=== PATIENT | female | born 2000 | race Caucasian/White ===

== ENCOUNTER 2020-01-04 12:28 | Outpatient (CLI) | payer SELFPAY | END 2020-01-04 12:29 | disposition home or self-care (01) | PROVIDERS: Family Provider Family Medicine; PCP Nurse Practitioner; Visit Provider Nurse Practitioner | DX: F41.9 Anxiety disorder, unspecified (principal) | CPT/HCPCS: 80053; 84443; 85025 ==

== ENCOUNTER → 2021-09-10 11:16 | Outpatient (BNVA) | payer SELFPAY | PROVIDERS: Family Provider Family Medicine; Visit Provider Family Medicine | DX: R07.9 Chest pain, unspecified (principal) | CPT/HCPCS: 71046 ==

== ENCOUNTER → 2021-10-31 10:59 | Outpatient (BNVA) | payer MEDICAID, SELFPAY | PROVIDERS: Family Provider Family Medicine; Visit Provider Family Medicine | DX: L04.2 Acute lymphadenitis of upper limb (principal); A28.1 Cat-scratch disease | CPT/HCPCS: 86611 ==

== ENCOUNTER 2021-11-07 09:33 | Emergency (ER) | payer MEDICAID, SELFPAY ==
[2021-11-07 09:37] VITALS: BP 162/92; PULSE 89; RESP 16; TEMP 36.8; O2SAT 99; BMI 44.9
--- NOTE | 2021-11-07 10:01 | USCV_ITS ---
Ioanaoard, Jennifer Age: 21 Gender: F : 2000 Exam Date: 11/07/2021 10:21 Ordering Phys: Bert Hernandez Technologist: Exam Location: [facility] [place] Indication: LT ARM PAIN AND SWELLING HISTORY: Upper extremity pain. PROCEDURES: Venous duplex imaging was performed in only the left upper extremity. The following venous structures were evaluated: internal jugular vein, subclavian vein, axillary vein, and brachial veins. In addition, the basilic vein, cephalic vein, radial vein, and ulnar vein. FINDINGS: The veins of the left upper extremity are readily compressible with normal venous flow dynamics including spontaneous flow, respiratory phasic variation and augmentation. CONCLUSIONS No left upper extremity DVT. Dr. Soila Gardiner DO (Electronically Signed) Final Date: 07 November 2021 11:37 S
--- NOTE | 2021-11-07 10:02 | W.ED.EXTPRO ---
HPI - Extremity Problem General: Chief complaint: Extremity Injury, Upper Stated complaint: L ARM PAIN X 2 WKS - NO KNOWN INJURY Time Seen by Provider: 11/07/21 09:37 History of Present Illness: HPI Narrative: Patient is a 21-year-old female comes to the ED with left arm pain. Patient denies any injury or trauma to cause pain and says it has been going on for the past 2 weeks. She describes it as an aching type pain that starts in her forearm and goes up to her tricep. Denies any recent exercise or strength training to cause muscle pain. 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 She has full range of motion her left arm. Patient also states she has little aching pain on her right flank. Denies any fever, chills, abdominal pain, nausea/vomiting, diarrhea, constipation, dysuria or hematuria. Associated symptoms: Deny chest pain, fever(s) or rash Review of Systems Const: Denies: fever(s), chills or fatigue Eyes: Denies: change in vision or eye discomfort ENMT: Denies: throat pain, odynophagia, nasal discharge or nasal congestion Card: Denies: chest pain, palpitations, edema, swelling of feet/ankles, dyspnea on exertion or orthopnea Resp: Denies: dyspnea, productive cough or non-productive cough GI: Denies: abdominal pain, nausea, vomiting, diarrhea, constipation or hematochezia : Reports: flank pain (right); Denies: dysuria or hematuria Musc: Reports: extremity pain (left arm aching pain) and muscle cramps (left arm); Denies: neck pain, back pain or extremity swelling Skin/Breast: Denies: rash or new lesions Neuro: Denies: headache(s), numbness in extremities or weakness in extremities PFS ED PFSH: Medical History Anxiety Family History Grandfather Bleeding disorder maternal Congestive heart failure maternal Heart disease maternal Grandmother Diabetes maternal Family/Other Hyperlipidemia maternal side Hypertension maternal side Denies family history of Colon cancer Ovarian cancer Clotting disorder Breast cancer Anesthesia complication Uterine cancer Thyroid condition Stroke Social History Smoking and tobacco status: never smoked Alcohol intake: never Female Reproductive History: Date of last menstrual period: 01/04/20 Para: 0 Physical Exam Narrative: EXAM NARRATIVE: Patient is a healthy 21-year-old female that appears in no acute distress or pain. She sitting comfortably on exam chair when I entered the room. Const: COMMON NORMALS: no acute distress, patient oriented x3 and alert GENERAL APPEARANCE: cooperative and comfortable NUTRITIONAL APPEARANCE: obese HENMT: COMMON NORMALS: normocephalic HEAD & SCALP: normocephalic MOUTH: Normal oral and palatal mucosa present THROAT: posterior oropharynx normal and uvula midline Eye: COMMON NORMALS: Equal, round and reactive pupils present PUPIL: Yes Equal, round and reactive pupils present Neck/C-Spine: COMMON NORMALS: supple GENERAL: Yes normal visual inspection Resp: COMMON NORMALS: normal respiratory effort, No retractions, No use of accessory muscles and clear to auscultation bilaterally AUSCULTATION: clear to auscultation bilaterally Cardio: COMMON NORMALS: regular rate, regular rhythm, S1 normal heart sound present, S2 normal heart sound present, No gallops present (Cardio), No clicks present (Cardio), No murmurs present (Cardio) and Peripheral pulses 2+ throughout RATE: regular rate RHYTHM: regular rhythm HEART SOUNDS: S1 normal heart sound present and S2 normal heart sound present PERIPHERAL PULSES: Peripheral pulses 2+ throughout GI: COMMON NORMALS: Normal to inspection, nondistended, normoactive bowel sounds present, Soft to palpation, non-tender and no masses PALPATION: Yes Soft to palpation : COMMON NORMALS: Yes no CVA tenderness BLADDER/KIDNEY EXAM: Yes no CVA tenderness Back/Pelvis: COMMON NORMALS: no CVA tenderness Extremity: COMMON NORMALS: normal to inspection, full ROM, capillary refill normal and no pedal edema Neuro: COMMON NORMALS: patient oriented x3 and moves all extremities SENSORIUM/ORIENTATION: Yes alert Skin: GENERAL SKIN EXAM: dry skin Course Vital Signs: Vital signs: Vital Signs Temperature 98.2 F 11/07/21 09:37 Pulse Rate 89 11/07/21 10:05 Respiratory Rate 16 11/07/21 10:05 Blood Pressure 162/92 11/07/21 10:05 Pulse Oximetry 99 11/07/21 10:05 MDM - Extremity (Nontraumatic) MDM Narrative: Medical decision making narrative: Patient is a 21-year-old female who comes to the ED with multiple complaints. Her main complaint was nontraumatic left arm pain that she describes as a muscle achy type pain. She also states she is having a little bit of mild right flank pain. Vitals stable. Exam of patient is benign. She appears in no acute distress or pain and is sitting comfortably on exam chair when I enter the room. UA showed no acute findings. hCG negative. Ultrasound venous duplex of left upper extremity showed no DVT or blood clots seen. Patient diagnosed with musculoskeletal pain of left upper extremity and discharged home. She was told to follow-up with PCP in 7 to 10 days reevaluation. Return to ED precautions given. Patient understood and agreed with plan. Lab Data: Attestation: I reviewed the patient's lab results. Labs: Lab Results 11/07/21 11/07/21 10:15 10:15 HCG, Qual Negative (Negative) Urine Color Straw (Yellow) Urine Appearance Clear (CLEAR) Urine pH 8 H (5-7) Ur Specific Gravit y 1.005 (1.005-1.030) Urine Protein Neg (Negative) Urine Glucose (UA) Norm (Normal) Urine Ketones Negative (Negative) Urine Blood Neg (Negative) Urine Nitrate Negative (Negative) Urine Bilirubin Neg (Negative) Prot Sulfosalicyli c Acd Negative (Negative) Urine Urobilinogen Norm mg/dL mg/dL (Negative) Ur Leukocyte Tania ase Negative (Negative) Imaging Data^: US Vascular: Attestation: I personally reviewed and interpreted this imaging study as follows: Radiologist's impression: Ultrasound venous duplex of left upper extremity?prelim report no DVT or blood clots seen. Discharge Plan Discharge Patient Disposition: Home Clinical Impression: Musculoskeletal pain of left upper extremity Condition: Stable Prescriptions: No Action escitalopram oxalate [Lexapro] 10 mg tablet 10 mg PO DAILY Qty: 45 RF: 0 fluconazole 150 mg tablet 300 mg PO .weekly 21 Days Qty: 6 RF: 0 Discharge Orders: Discharge ED (Routine); Ordered 11/07/21 Ordered By: Bert Hernandez Discharge Diet: Regular Discharge Activity: Increase activity as tolerated Activity Restrictions/Additional Instructions: Follow-up with medical provider as directed in 7 to 10 days for reevaluation. Take [id number] ibuprofen or Tylenol for any pain. Apply cold pack on sore area of arm to help with symptoms. Return to the ER or your medical provider if condition worsens. Please read and understand discharge instructions. Thank you for choosing [facility] for your healthcare needs today. Please realize this is an emergency room and that we are providing you with a medical screening exam and this may not be complete and all inclusive of all the testing and or work up that you may need to determine your ailment or severity of your illness. It is very important that you follow up as instructed or that you return to the Emergency Department should you have concerns or if your condition changes or worsens in any way. Coding Level of Care Code ED Tool Design Draftsperson for Alfonzo Reed Exam Comprehensive
[2021-11-07 10:05] VITALS: BP 162/92; PULSE 89; RESP 16; O2SAT 99
[2021-11-07 10:27] LABS: HCG Qualitative Urine. Negative (Negative)
[2021-11-07 11:00] LABS: Add Urine Microscopic? NO; Charge for UA Resulting for Rev
[2021-11-07 11:16] LABS: Bilirubin Urine Neg (Negative); Blood Urine Neg (Negative); Glucose Urine UA Norm (Normal); Ketones Urine Negative (Negative); Nitrate Urine Negative (Negative); Protein Urine Neg (Negative); Specific Gravity, Urine 1.005 (1.005-1.030); Urine Appearance Clear (CLEAR); Urine Color Straw (Yellow); pH Urine 8 (5-7)
[2021-11-07 11:17] LABS: Leukocyte Esterase Urine Negative (Negative); Sulfosalicylic Acid Urine Negative (Negative); Urobilinogen Urine Norm (Negative)
== END 2021-11-07 11:37 | disposition home or self-care (01) ==
PROVIDERS: Emergency Provider Physician Assistant; PCP Internal Medicine
DX: M79.602 Pain in left arm (principal)
CPT/HCPCS: 81003; 81025; 93971; 99282

== ENCOUNTER → 2021-11-20 13:25 | Outpatient (BNVA) | payer MEDICAID, SELFPAY | PROVIDERS: PCP Internal Medicine; Visit Provider Nurse Practitioner Family | DX: O26.899 Other specified pregnancy related conditions, unspecified trimester (principal); R10.2 Pelvic and perineal pain; R10.9 Unspecified abdominal pain | CPT/HCPCS: 36415; 81000; 84702 ==

== ENCOUNTER 2021-12-11 14:24 | Outpatient (CLI) | payer MEDICAID, SELFPAY ==
--- NOTE | 2021-12-11 15:30 | US_ITS ---
WS: [id number] EARLY OBSTETRICAL ULTRASOUND (<14 WEEKS). HISTORY: Vaginal and Lower back pain COMPARISON: None available. Single intrauterine gestational sac is identified. Cardiac activity at 164 BPM. [place]-rump length shanon sures 1.1 cm which corresponds to a gestation of 7w1d. Normal-appearing yolk sac and amnion demonstra angel. No subchorionic hemorrhage. No free fluid. Both ovaries are identified. Otherwise no adnexal masses. No solid mass. Normal vascularity. No free fluid. Cervix is closed. US/US OB <=14 wk fetus w transvag IMPRESSION: 1. Single intrauterine gestation of 7 weeks 1 day with an EDC of 07/29/2022. 2. Normal cardiac activity.
== END 2021-12-11 14:25 | disposition home or self-care (01) ==
LOC: RAD 14:29
PROVIDERS: PCP Internal Medicine; Visit Provider Nurse Practitioner Family
DX: Z34.90 Encounter for supervision of normal pregnancy, unspecified, unspecified trimester (principal); M54.50 Low back pain, unspecified; R10.2 Pelvic and perineal pain
CPT/HCPCS: 76801; 76817

== ENCOUNTER 2022-02-11 09:49 | Outpatient (CLI) | payer MEDICAID, SELFPAY ==
--- NOTE | 2022-02-11 09:30 | US_ITS ---
WS: [id number] ULTRASOUND LEFT BREAST HISTORY: N64.4 - Mastodynia COMPARISON: None available. TECHNIQUE: 2-D and Doppler. Pain and palpable area directed by the patient at 10:00, 4 cm from nipple. There is dense fibroglandu lar tissue in the site directed by the patient. No increased vascularity. There is a hypoechoic nodul e measuring 9 x 5 x 5 mm which is probably a fibroadenoma at 10:00, 4 cm from the nipple. US/US breast LT limited* [id number] IMPRESSION: BI-RADS: 2-Benign FOLLOW-UP: See Report Hypoechoic nodule with a maximum diameter of 9 mm in the LEFT breast at 10:00. Most consistent with a fibroadenoma. Clinically if this is a lesion of concern continues to increase in size biopsy or surgical removal may be options.
== END 2022-02-11 09:50 | disposition home or self-care (01) ==
PROVIDERS: PCP Internal Medicine; Visit Provider Obstetrics & Gynecology
DX: N64.4 Mastodynia (principal); N63.22 Unspecified lump in the left breast, upper inner quadrant
CPT/HCPCS: 76642

== ENCOUNTER 2022-03-21 14:16 | Outpatient (CLI) | payer OTHER, MEDICAID, SELFPAY ==
--- NOTE | 2022-03-21 14:33 | US_ITS ---
WS: [id number] ULTRASOUND SOFT TISSUES LEFT axilla. HISTORY: M79.622 - Pain in left upper arm COMPARISON: None available. TECHNIQUE: 2-D and color Doppler imaging is submitted. Ultrasound is directed to the LEFT axilla in the area of pain. There is a lymph node corresponding to the area of pain in the LEFT axilla. Lymph node measures 2.5 x 2.7 x 1.0 cm. No increased vascularit y. US/US soft tissue/extremity [id number] IMPRESSION: Single unremarkable appearing lymph node in the LEFT axilla corresponds to the area of pain.
== END 2022-03-21 14:17 | disposition home or self-care (01) ==
PROVIDERS: PCP Internal Medicine; Visit Provider Obstetrics & Gynecology
DX: M79.622 Pain in left upper arm (principal)
CPT/HCPCS: 76882

== ENCOUNTER 2022-04-16 13:11 | Outpatient (CLI) | payer MEDICAID, SELFPAY ==
--- NOTE | 2022-04-16 13:17 | US_ITS ---
WS: [id number] ULTRASOUND LEFT BREAST HISTORY: L BREAST LUMP FOLLOW UP-11 OCLOCK 4CM FROM NIPPLE COMPARISON: 02/11/2022 TECHNIQUE: 2-D and Doppler. The vague soft tissue nodule seen in the LEFT breast at 10:00 is not identified today. No soft tissue masses or increased vascularity. Normal ultrasound. US/US breast LT limited* [id number] IMPRESSION: BI-RADS: 1-Negative FOLLOW-UP: See Report Previously described hypoechoic nodule in the LEFT breast is not visualized tod ay. No additional follow-up necessary.
== END 2022-04-16 13:12 | disposition home or self-care (01) ==
LOC: RAD 13:14
PROVIDERS: PCP Internal Medicine; Visit Provider Physician Assistant
DX: N63.22 Unspecified lump in the left breast, upper inner quadrant (principal)
CPT/HCPCS: 76642

== ENCOUNTER → 2022-05-15 13:31 | Outpatient (BNVA) | payer MEDICAID, SELFPAY | PROVIDERS: Visit Provider Registered Nurse Neonatal Intensive Care | DX: T14.8XXA Other injury of unspecified body region, initial encounter (principal); W57.XXXA Bitten or stung by nonvenomous insect and other nonvenomous arthropods, initial encounter | CPT/HCPCS: 86618; 86666; 86757 ==

== ENCOUNTER 2022-07-04 07:53 | Outpatient (CLI) | payer MEDICAID, SELFPAY ==
--- NOTE | 2022-07-04 07:56 | US_ITS ---
WS: [id number] ULTRASOUND LEFT BREAST HISTORY: BREAST LUMP, 22-year-old. COMPARISON: None available. TECHNIQUE: 2-D and Doppler. Palpable area corresponds to a prominent vessel at 11:00, 4 cm from the nipple. There is no mass iden tified. No skin thickening or distortion. US/US breast LT limited* [id number] IMPRESSION: BI-RADS: 1-Negative FOLLOW-UP: See Report No suspicious mass.
== END 2022-07-04 07:54 | disposition home or self-care (01) ==
LOC: RAD 07:53
PROVIDERS: Visit Provider Nurse Practitioner Family
DX: N63.20 Unspecified lump in the left breast, unspecified quadrant (principal)
CPT/HCPCS: 76642

== ENCOUNTER → 2022-07-09 07:41 | Outpatient (BNVA) | payer MEDICAID, SELFPAY | PROVIDERS: Visit Provider Otolaryngology | DX: O99.519 Diseases of the respiratory system complicating pregnancy, unspecified trimester (principal); J31.0 Chronic rhinitis | CPT/HCPCS: 99213 ==

== ENCOUNTER 2022-09-19 15:25 | Emergency (ER) | payer MEDICAID, SELFPAY ==
[2022-09-19 15:31] VITALS: BP 114/79; PULSE 101; RESP 15; TEMP 36.7; O2SAT 98; BMI 46.5
--- NOTE | 2022-09-19 16:05 | ED_ITS ---
Documented by User: Dimitri Gallo DO 10/01/22 07:48 HPI - Abdominal Pain General: Chief Complaint: Abdominal Pain Stated Complaint: low abd pain Time Seen by Provider: 09/19/22 15:43 Source: patient Mode of arrival: ambulatory History of Present Illness: 22-year-old female presents emergency room complaining left pelvic pain for the last 7 to 10 days.. She is 8 weeks from a home delivery showed no care. She does not have a menstrual period since her delivery.. Little bit of clear mucousy discharge no foul-smelling discharge. She had approximately 2 weeks of bleeding pause for a week and then she had a few more days, but has not recurred. No dysuria urgency or frequency no fever sweats or chills. MD elicited complaint: abdominal pain Pertinent past history: none Onset (ago): week(s) Pain Consistency: intermittent Location: Pelvis (Left) Severity: mild Quality: cramping Radiation: none Exacerbating factors: nothing Relieving factors: nothing Associated Symptoms: Reports GI cramping; Denies anorexia, belching, bloating, change in bowel habits, change in stool character, chills, coffee ground emesis, constipation, diarrhea, dyspepsia, dysu guillermo, excessive flatus, fever(s), heartburn, hematochezia, hematuria, hematemesis, fecal incontinence, loose stools, melena, nausea, poor appetite, syncope and vomiting Related Data: Date of Last Menstrual Period: 01/04/20 Review of Systems Const: Denies: fever(s) or chills ENMT: Denies: throat pain, ear or mastoid pain, nasal discharge or nasal congestion Card: Denies: syncope Resp: Denies: dyspnea, productive cough or non-productive cough GI: Reports: GI cramping; Denies: nausea, vomiting, hematemesis, coffee ground emesis, heartburn, diarrhea, constipation, bloating, belching, excessive flatus, fecal incontinence, change in bowel habits, change in stool character, hematochezia or melena : Denies: flank pain, difficulty voiding, dysuria, urinary frequency, urinary urgency or hematuria Skin/Breast: Denies: rash or pruritus PFSH ED PFSH: Medical History Anxiety Psychiatric care Surgical History No history of previous surgery Family History Grandfather Bleeding disorder maternal Congestive heart failure maternal Heart disease maternal Grandmother Diabetes maternal Family/Other Hyperlipidemia maternal side Hypertension maternal side Denies family history of Colon cancer Ovarian cancer Clotting disorder Breast cancer Anesthesia complication Uterine cancer Thyroid condition Stroke Social History Smoking and tobacco status: never smoked Alcohol intake: never Female Reproductive History: Date of last menstrual period: 01/04/20 Para: 0 Spontaneous abortions: No Physical Exam Const: GENERAL APPEARANCE: cooperative and comfortable ORIENTATION/CONSCIOUSNESS: Yes awake, Yes oriented to person, Yes oriented to place and Yes oriented to time HENMT: COMMON NORMALS: normocephalic, atraumatic and hearing grossly normal bilaterally HEAD & SCALP: normocephalic and atraumatic Resp: COMMON NORMALS: normal respiratory effort, No retractions, No use of acc essory muscles and clear to auscultation bilaterally AUSCULTATION: clear to auscultation bilaterally Cardio: COMMON NORMALS: regular rate, regular rhythm and No murmurs present (Cardio) RATE: regular rate RHYTHM: regular rhythm GI: COMMON NORMALS: Soft to palpation and No hepatosplenomegaly present AUSCULTATION: Yes normoactive bowel sounds PALPATION: Yes Soft to palpation, No Tenderness to palpation present (GI), No Guarding due to palpation present (G I) and Yes No hepatosplenomegaly present Extremity: COMMON NORMALS: normal to inspection, capillary refill normal, no clubbing, cyanosis or edema, no calf tenderness and no pedal edema Neuro: SENSORIUM/ORIENTATION: Yes oriented to person, Yes oriented to place and Yes oriented to time Skin: COMMON NORMALS: no rashes or lesions noted GENERAL SKIN EXAM: no rashes or lesions noted Course Vital Signs: Vital signs: Vital Signs Temperature 98.1 F 09/19/22 15:31 Pulse Rate 92 09/19/22 19:37 Respiratory Rate 14 09/19/22 19:37 Blood Pressure 115/71 09/19/22 19:37 Pulse Oximetry 99 09/19/22 19:37 Oxygen Delivery Me thod 09/19/22 18:46 MDM - Abdominal Pain Medical Decision Making Care signed out to Dr. Ayers at change of shift. See final notes for diagnosis and disposition. Received in checkout from Dr. Johnson at shift change. She has had left-sided pelvic pain. Her CBC and BMP are normal. Liver profile is normal as well. U rinalysis is negative. Pelvic exam with wet prep reveals clue cells, trichomonas, and yeast. GC and Chlamydia are pending. She is treated for all of these given her symptoms, and presentation. She will follow-up as an outpatient. Her pelvic ultrasound showed merely some fluid in her cervix, with a normal uterus. Under the circumstances, retained products is not high on the differential list given no white blood cell elevation, no fever, normal- appearing uterus, and the above findings. Lab Data : 09/19/22 16:20 09/19/22 16:20 Labs/Radiology: Radiology Impressions Pelvic/Transvag US 09/19/22 16:55 IMPRESSION: 1. Small amount of fluid in the cervix with minimal nonspecific solid-appearing material with minimal internal color blood flow, with a more focal area measuring up to 5 mm, may reflect a polyp, retained products of conception may also be a consideration depending on the clinical scenario, please correlate clinically. 2. Small amount of nonspecific fluid in the pelvis. 3. Right ovary 8 mm cyst may be follicular in nature with several additional follicular cysts. Laboratory Results WBC 8.9 10^3/uL (4.0-10.0) 09/19/22 16:20 RBC 5.30 10^6/uL (4.1-5.3) 09/19/22 16:20 Hgb 13.4 g/dL (11.5-15.3) 09/19/22 16:20 Hct 42.0 % (37.0-47.0) 09/19/22 16:20 MCV 79.2 fl (81-99) L 09/19/22 16:20 MCH 25.3 pg (28.0-34.0) L 09/19/22 16:20 MCHC 31.9 g/dL (30.0-36.0) 09/19/22 16:20 RDW 13.7 % (12.1-15.1) 09/19/22 16:20 Plt Count 392 10^3/cmm (130-400) 09/19/22 16:20 MPV 11.1 fL (7.4-10.4) H 09/19/22 16:20 Neut % (Auto) 66.3 % 09/19/22 16:20 Lymph % (Auto) 25.6 % 09/19/22 16:20 [place] % (Auto) 4.5 % 09/19/22 16:20 Eos % (Auto) 2.5 % 09/19/22 16:20 Baso % (Auto) 0.6 % 09/19/22 16:20 Neut # (Auto) 5.90 10^3/uL (1.8-7.7) 09/19/22 16:20 Lymph # (Auto) 2.3 10^3/uL (0.8-4.8) 09/19/22 16:20 [place] # (Auto) 0.4 10^3/uL (0.2-0.9) 09/19/22 16:20 Eos # (Auto) 0.2 10^3/uL (0.0-0.8) 09/19/22 16:20 Baso # (Auto) 0.1 10^3/uL (0.0-0.1) 09/19/22 16:20 Nucleated RBC % (auto) 0 % 09/19/22 16:20 Nucleated RBCs # 0.0 /100WBC 09/19/22 16:20 Sodium 138 mmol/L (136-145) 09/19/22 16:20 Potassium 4.3 mmol/L (3.5-5.1) 09/19/22 16:20 Chloride 100 mmol/L (98-107) 09/19/22 16:20 Carbon Dioxide 25 mmol/L (22-29) 09/19/22 16:20 Anion Gap 17.3 (5-19) 09/19/22 16:20 BUN 18 mg/dL (6-20) 09/19/22 16:20 Creatinine 0.6 mg/dL (0.5-0.9) 09/19/22 16:20 GFR Calculation 123.9 mL/min (90-130) 09/19/22 16:20 Glucose 82 mg/dL (65-115) 09/19/22 16:20 Calculated Osmolality 287 mOsm/kg (285-295) 09/19/22 16:20 Calcium 9.4 mg/dL (8.5-10.5) 09/19/22 16:20 Total Bilirubin 0.4 mg/dL (0.15-1.2) 09/19/22 16:20 AST 26 U/L (0-32) 09/19/22 16:20 ALT 26 U/L (0-33) 09/19/22 16:20 Alkaline Phosphatase 105 U/L (35-105) 09/19/22 16:20 Total Protein 8.5 g/dL (6.6-8.7) 09/19/22 16:20 Albumin 4.7 g/dL (3.5-5.2) 09/19/22 16:20 Globulin 3.8 g/dL (1.3-4.6) 09/19/22 16:20 Lipase 15 U/L (13-60) 09/19/22 16:20 HCG, Qual Negative (Negative) 09/19/22 16:20 Urine Color Yellow (Yellow) 09/19/22 16:45 Urine Appearance Clear (CLEAR) 09/19/22 16:45 Urine pH 5 (5-7) 09/19/22 16:45 Ur Specific [place] 1.020 (1.005-1.030) 09/19/22 16:45 Urine Protein Neg (Negative) 09/19/22 16:45 Urine Glucose (UA) Norm (Normal) 09/19/22 16:45 Urine Ketones Negative (Negative) 09/19/22 16:45 Urine Blood Neg (Negative) 09/19/22 16:45 Urine Nitrate Negative (Negative) 09/19/22 16:45 Urine Bilirubin Neg (Negative) 09/19/22 16:45 Urine Urobilinogen Norm mg/dL (Negative) 09/19/22 16:45 Ur Leukocyte Esterase Negative (Negative) 09/19/22 16:45 Discharge Plan Discharge Patient Disposition: Home Clinical Impression: Trichomonal vaginitis, Vaginal yeast infection, Vaginal bacteriosis Condition: Stable Prescriptions: New doxycycline hyclate 100 mg capsule 100 mg PO BID 14 Days Qty: 28 0RF metformin 500 mg tablet 500 mg PO BID Qty: 10 0RF No Action zinc acetate 25 mg (zinc) Capsule 25 mg PO DAILY Vitamin D3 25 mcg (1,000 unit) Tablet 25 mcg PO DAILY Discharge Orders: Discharge ED (Routine); Ordered 09/19/22 Ordered By: Ruddy Ayers Patient Instructions: Trichomoniasis (ED), Yeast Infection (ED), Opioid Safety, Pain Management Activity Restrictions/Additional Instructions: Return for vomiting liquids or medications, fever despite 2-3 doses of antibiotics, worsening pain despite treatment, other concerning symptoms. Follow-up with your doctor next week. Coding Level of Care Code ED Tilting Saw Operator for Chg Fwd Exam Detailed Documented by User: Ruddy Ayers DO 09/19/22 19:07 HPI - Abdominal Pain General: Chief Complaint: Abdominal Pain Stated Complaint: low abd pain Time Seen by Provider: 09/19/22 15:43 PFSH ED PFSH: Medical History Anxiety Psychiatric care Surgical History No history of previous surgery Family History Grandfather Bleeding disorder maternal Congestive heart failure maternal Heart disease maternal Grandmother Diabetes maternal Family/Other Hyperlipidemia maternal side Hypertension maternal side Denies family history of Colon cancer Ovarian cancer Clotting disorder Breast cancer Anesthesia complication Uterine cancer Thyroid condition Stroke Social History Smoking and tobacco status: never smoked Alcohol intake: never Course Vital Signs: Vital signs: Vital Signs Temperature 98.1 F 09/19/22 15:31 Pulse Rate 92 09/19/22 19:37 Respiratory Rate 14 09/19/22 19:37 Blood Pressure 115/71 09/19/22 19:37 Pulse Oximetry 99 09/19/22 19:37 Oxygen Delivery Me thod 09/19/22 18:46 MDM - Abdominal Pain Medical Decision Making Received in checkout from Dr. Johnson at shift change. She has had left-sided pelvic pain. Her CBC and BMP are normal. Liver profile is normal as well. Urinalysis is negative. Pelvic exam with wet prep reveals clue cells, trichomonas, and yeast. GC and Chlamydia are pending. She is treated for all of these given her symptoms, and presentation. She will follow-up as an outpatient. Her pelvic ultrasound showed merely some fluid in her cervix, with a normal uterus. Under the circumstances, retained products is not high on the differential list given no white blood cell elevation, no fever, normal- appearing uterus, and the above findings. Lab Data : 09/19/22 16:20 09/19/22 16:20 Labs/Radiology: Radiology Impressions Pelvic/Transvag US 09/19/22 16:55 IMPRESSION: 1. Small amount of fluid in the cervix with minimal nonspecific solid-appearing material with minimal internal color blood flow, with a more focal area measuring up to 5 mm, may reflect a polyp, retained products of conception may also be a consideration depending on the clinical scenario, please correlate clinically. 2. Small amount of nonspecific fluid in the pelvis. 3. Right ovary 8 mm cyst may be follicular in nature with several additional follicular cysts. Laboratory Results WBC 8.9 10^3/uL (4.0-10.0) 09/19/22 16:20 RBC 5.30 10^6/uL (4.1-5.3) 09/19/22 16:20 Hgb 13.4 g/dL (11.5-15.3) 09/19/22 16:20 Hct 42.0 % (37.0-47.0) 09/19/22 16:20 MCV 79.2 fl (81-99) L 09/19/22 16:20 MCH 25.3 pg (28.0-34.0) L 09/19/22 16:20 MCHC 31.9 g/dL (30.0-36.0) 09/19/22 16:20 RDW 13.7 % (12.1-15.1) 09/19/22 16:20 Plt Count 392 10^3/cmm (130-400) 09/19/22 16:20 MPV 11.1 fL (7.4-10.4) H 09/19/22 16:20 Neut % (Auto) 66.3 % 09/19/22 16:20 Lymph % (Auto) 25.6 % 09/19/22 16:20 [place] % (Auto) 4.5 % 09/19/22 16:20 Eos % (Auto) 2.5 % 09/19/22 16:20 Baso % (Auto) 0.6 % 09/19/22 16:20 Neut # (Auto) 5.90 10^3/uL (1.8-7.7) 09/19/22 16:20 Lymph # (Auto) 2.3 10^3/uL (0.8-4.8) 09/19/22 16:20 [place] # (Auto) 0.4 10^3/uL (0.2-0.9) 09/19/22 16:20 Eos # (Auto) 0.2 10^3/uL (0.0-0.8) 09/19/22 16:20 Baso # (Auto) 0.1 10^3/uL (0.0-0.1) 09/19/22 16:20 Nucleated RBC % (auto) 0 % 09/19/22 16:20 Nucleated RBCs # 0.0 /100WBC 09/19/22 16:20 Sodium 138 mmol/L (136-145) 09/19/22 16:20 Potassium 4.3 mmol/L (3.5-5.1) 09/19/22 16:20 Chloride 100 mmol/L (98-107) 09/19/22 16:20 Carbon Dioxide 25 mmol/L (22-29) 09/19/22 16:20 Anion Gap 17.3 (5-19) 09/19/22 16:20 BUN 18 mg/dL (6-20) 09/19/22 16:20 Creatinine 0.6 mg/dL (0.5-0.9) 09/19/22 16:20 GFR Calculation 123.9 mL/min (90-130) 09/19/22 16:20 Glucose 82 mg/dL (65-115) 09/19/22 16:20 Calculated Osmolality 287 mOsm/kg (285-295) 09/19/22 16:20 Calcium 9.4 mg/dL (8.5-10.5) 09/19/22 16:20 Total Bilirubin 0.4 mg/dL (0.15-1.2) 09/19/22 16:20 AST 26 U/L (0-32) 09/19/22 16:20 ALT 26 U/L (0-33) 09/19/22 16:20 Alkaline Phosphatase 105 U/L (35-105) 09/19/22 16:20 Total Protein 8.5 g/dL (6.6-8.7) 09/19/22 16:20 Albumin 4.7 g/dL (3.5-5.2) 09/19/22 16:20 Globulin 3.8 g/dL (1.3-4.6) 09/19/22 16:20 Lipase 15 U/L (13-60) 09/19/22 16:20 HCG, Qual Negative (Negative) 09/19/22 16:20 Urine Color Yellow (Yellow) 09/19/22 16:45 Urine Appearance Clear (CLEAR) 09/19/22 16:45 Urine pH 5 (5-7) 09/19/22 16:45 Ur Specific [place] 1.020 (1.005-1.030) 09/19/22 16:45 Urine Protein Neg (Negative) 09/19/22 16:45 Urine Glucose (UA) Norm (Normal) 09/19/22 16:45 Urine Ketones Negative (Negative) 09/19/22 16:45 Urine Blood Neg (Negative) 09/19/22 16:45 Urine Nitrate Negative (Negative) 09/19/22 16:45 Urine Bilirubin Neg (Negative) 09/19/22 16:45 Urine Urobilinogen Norm mg/dL (Negative) 09/19/22 16:45 Ur Leukocyte Esterase Negative (Negative) 09/19/22 16:45 Discharge Plan Discharge Patient Disposition: Home Clinical Impression: Trichomonal vaginitis, Vaginal yeast infection, Vaginal bacteriosis Condition: Stable Prescriptions: New doxycycline hyclate 100 mg capsule 100 mg PO BID 14 Days Qty: 28 0RF metformin 500 mg tablet 500 mg PO BID Qty: 10 0RF No Action zinc acetate 25 mg (zinc) Capsule 25 mg PO DAILY Vitamin D3 25 mcg (1,000 unit) Tablet 25 mcg PO DAILY Discharge Orders: Discharge ED (Routine); Ordered 09/19/22 Ordered By: Ruddy Ayers Patient Instructions: Trichomoniasis (ED), Yeast Infection (ED), Opioid Safety, Pain Management Activity Restrictions/Additional Instructions: Return for vomiting liquids or medications, fever despite 2-3 doses of antibiotics, worsening pain despite treatment, other concerning symptoms. Follow-up with your doctor next week. Coding Level of Care Code ED Tilting Saw Operator for Alfonzo Reed Exam Detailed
[2022-09-19 16:41] LABS: Basophils # 0.1 10^3/uL (0.0-0.1); Basophils % 0.6 %; Eosinophils # 0.2 10^3/uL (0.0-0.8); Eosinophils % 2.5 %; Hemoglobin 13.4 g/dL (11.5-15.3); Lymphocytes # 2.3 10^3/uL (0.8-4.8); Lymphocytes % 25.6 %; Mean Corpuscular HGB Conc 31.9 g/dL (30.0-36.0); Mean Corpuscular Hemoglobin 25.3 pg (28.0-34.0); Mean Corpuscular Volume 79.2 fl (81-99); Mean Platelet Volume 11.1 fL (7.4-10.4); Monocytes # 0.4 10^3/uL (0.2-0.9); Monocytes % 4.5 %; Neutrophils % 66.3 %; Nucleated Red Blood Cells % 0 %; Platelet Count 392 10^3/cmm (130-400); Red Cell Distribution Width 13.7 % (12.1-15.1); White Blood Count 8.9 10^3/uL (4.0-10.0)
[2022-09-19 16:48] LABS: HCG, Serum Qual Negative (Negative)
--- NOTE | 2022-09-19 16:55 | USR_ITS ---
PROCEDURE INFORMATION: Exam: US Nonobstetric Pelvis; Complete Exam date and time: 09/19/2022 5:53 PM Age: 22 years old Clinical indication: Pelvic pain; Patient HX: baby now 8 weeks. No menses since ; Additional info: L pelvic pain TECHNIQUE: Imaging protocol: Transabdominal pelvic nonobstetric ultrasound. Complete exam. Real time ultrasound with image documentation. COMPARISON: US OB <=14 wk fetus w transvag 12/11/2021 2:36 PM FINDINGS: Uterus: Uterus is normal. Endometrial stripe is normal. Cervix: Small amount of fluid in the cervix with minimal nonspecific solid-appearing material with minimal internal color blood flow, with a more focal area measuring up to 5 mm, may reflect a polyp, retained products of conception may also be a consideration depending on the clinical scenario, please correlate clinically. Right ovary/adnexa: Right ovary 8 mm cyst may be follicular in nature with several additional follicular cysts. Left ovary/adnexa: Ovary is normal. No mass. Normal blood flow. Intraperitoneal space: Small amount of nonspecific fluid in the pelvis. Urinary bladder: Normal. US/US pelvic with transvaginal IMPRESSION: 1. Small amount of fluid in the cervix with minimal nonspecific solid-appearing material with minimal internal color blood flow, with a more focal area measuring up to 5 mm, may reflect a polyp, retained products of conception may also be a consideration depending on the clinical scenario, please correlate clinically. 2. Small amount of nonspecific fluid in the pelvis. 3. Right ovary 8 mm cyst may be follicular in nature with several additional follicular cysts.
[2022-09-19 16:56] LABS: Add Urine Microscopic? NO; Charge for UA Resulting for Rev
[2022-09-19 16:58] LABS: Alanine Aminotransferase 26 U/L (0-33); Albumin Level 4.7 g/dL (3.5-5.2); Alkaline Phosphatase 105 U/L (35-105); Anion Gap 17.3 (5-19); Aspartate Amino Transferase 26 U/L (0-32); Blood Urea Nitrogen 18 mg/dL (6-20); Calcium 9.4 mg/dL (8.5-10.5); Carbon Dioxide 25 mmol/L (22-29); Chloride 100 mmol/L (98-107); Globulin 3.8 g/dL (1.3-4.6); Glomerular Filtration Rate 123.9 mL/min (90-130); Glucose 82 mg/dL (65-115); Lipase 15 U/L (13-60); Osmolality Calculated 287 mOsm/kg (285-295); Potassium 4.3 mmol/L (3.5-5.1); Sodium 138 mmol/L (136-145); Total Bilirubin 0.4 mg/dL (0.15-1.2); Total Protein 8.5 g/dL (6.6-8.7)
[2022-09-19 17:13] LABS: Bilirubin Urine Neg (Negative); Blood Urine Neg (Negative); Glucose Urine UA Norm (Normal); Ketones Urine Negative (Negative); Leukocyte Esterase Urine Negative (Negative); Nitrate Urine Negative (Negative); Protein Urine Neg (Negative); Urine Appearance Clear (CLEAR); Urine Color Yellow (Yellow); Urobilinogen Urine Norm (Negative); pH Urine 5 (5-7)
[2022-09-19 18:46] VITALS: BP 115/71; PULSE 92; RESP 14; O2SAT 99
[2022-09-19] MEDS: azithromycin 250 mg Tablet 2000 MG PO (18:48)
[2022-09-19 19:37] VITALS: BP 115/71; PULSE 92; RESP 14; O2SAT 99
== END 2022-09-19 19:40 | disposition home or self-care (01) ==
PROVIDERS: Family Medicine; Emergency Provider Emergency Medicine
DX: A59.01 Trichomonal vulvovaginitis (principal); B37.31 Acute candidiasis of vulva and vagina
CPT/HCPCS: 76830; 76856; 80053; 81003; 83690; 84703; 85025; 87210; 87491; 87591; 87661; 96365; 99285; J0696; Q0144

== ENCOUNTER 2022-10-14 12:00 | Day surgery (SDC) | payer MEDICAID, SELFPAY ==
[2022-10-13 10:03] VITALS: BMI 44.9
[2022-10-14] VITALS (8 sets, daily range): BP systolic 100–135; BP diastolic 45–89; PULSE 90–112; RESP 16–18; TEMP 35.9–36.7; O2SAT 96–100
[2022-10-14 12:28] LABS: OR HCG Qualitative Urine Negative (Negative)
[2022-10-14] MEDS: sodium chloride 0.9% 1,000 ML 30 ML IV (12:39)
--- NOTE | 2022-10-14 12:58 | P.HPUD_ITS ---
Surgery/Procedure H&P Update DATE OF PROCEDURE: October 14, 2022 DATE H&P PERFORMED: 10/10/22 H&P UPDATE INFORMATION: I have reviewed H&P completed within last 30 days, I have examined patient prior to procedure and No changes to prior documentation PREOP DIAGNOSIS: uterine mass PLANNED PROCEDURE: Operation Date: 10/14/22 13:30 Proposed Procedures p Hysteroscopy, dilation and curettage with Myosure 43047, [id number] O73.0(Not Applicable) - Vannessa Vila MD s Dilation And Curettage (D&C)(Not Applicable) - Vannessa Vila MD Related Problem List Diagnoses (1) Transfusion of blood product refused for episcopal reason: (2) Uterine mass:
--- NOTE | 2022-10-14 13:19 | ANES.PREANE2 ---
Pre-Anesthetic Assessment Height/Weight: Height 1.65 m Weight 122.47 kg Temp Pulse Resp BP Pulse Ox O2 Del Method 96.7 F L 90 18 133/89 100 10/14/22 12:18 10/14/22 12:18 10/14/22 12:18 10/14/22 12:18 10/14/22 12:18 10/14/22 12:18 Preop Diagnosis: uterine mass Operation Date: 10/14/22 13:30 Proposed Procedures p Hysteroscopy, dilation and curettage with Myosure 58276, [id number] O73.0(Not Applicable) - Vannessa Vila MD s Dilation And Curettage (D&C)(Not Applicable) - Vannessa Vila MD Familial anesthetic complications: none Was Beta Selene taken within 24 hours: N/A Was Clonidine taken within 24 hours: N/A Last intake: Intake Last Liquid Date 10/13/22 Last Liquid Time 23:00 Last Solid Date 10/13/22 Last Solid Time 22:00 Social No alcohol and No tobacco Exam alert, oriented x 3, clear to auscultation bilaterally and regular rate & rhythm Airway Submandibular: within normal limits Cervical ROM: within normal limits Mallampati: Class II Dentition: full Metabolic Morbid Obesity Neuropsych Anxiety Anesthetic Plan ASA status: 2 Anesthesia: General Other: 2 months Medications/Allergies Home Medications Medication Instructions Recorded Confirmed Last Taken Type cholecalciferol (vitamin D3) 25 25 mcg PO DAILY 09/19/22 10/14/22 1 Day Ago History mcg (1,000 unit) tablet (Vitamin ~10/13/22 D3) ascorbic acid (vitamin C) 1,000 mg 1 g PO Q6H 10/10/22 10/14/22 1 Day Ago History tablet ~10/13/22 ashwagandha root extract 300 mg 300 mg PO DAILY 10/10/22 10/14/22 1 Day Ago History capsule ~10/13/22 betaine HCl 300 mg tablet 300 mg PO DAILY 10/10/22 10/14/22 1 Day Ago History ~10/13/22 mv-min-vit C 250 ht-gmibkr-amvun 1 tab PO DAILY 10/10/22 10/14/22 1 Day Ago History HCl-herb 124 12.5 mg chewable ~10/13/22 tablet (Immune Support) Allergies Allergy/AdvReac Type Severity Reaction Status Date / Time No Known Allergies Allergy Verified 10/14/22 12:10 Current Medications Generic Name Dose Route Start Last Admin Trade Name Maico PRN Reason Stop Dose Admin Sodium Chloride 1,000 mls @ 30 mls/hr 10/14/22 12:15 10/14/22 12:39 Sodium Chloride 0.9% IV 10/15/22 12:14 30 mls/hr .Q24H COLT Administration PFSH Anesthesia Medical History Anxiety Psychiatric care Surgical History No history of previous surgery Family History Grandfather Bleeding disorder maternal Congestive heart failure maternal Heart disease maternal Grandmother Diabetes maternal Family/Other Hyperlipidemia maternal side Hypertension maternal side Denies family history of Colon cancer Ovarian cancer Clotting disorder Breast cancer Anesthesia complication Uterine cancer Thyroid condition Stroke Social History Smoking and tobacco status: never smoked Alcohol intake: never Female Reproductive History Date of last menstrual period: 10/12/21 Para: 0 Spontaneous abortions: No Data Anesthesia Cardiac Studies: No Data to Display
[2022-10-14] MEDS: ceFAZolin 2,000 MG in sodium chloride 0.9% (plus) 50 ML 100 MG IV (13:34)
--- NOTE | 2022-10-14 14:28 | P.OP_ITS ---
Operative Report Date of procedure: October 14, 2022 Pre-op diagnosis: Preop Diagnosis uterine mass Post-op diagnosis: same Post-op findings: some excessive tissue and anterior to posterior adhesions. Procedure done: hysteroscopy, dilation and curettage with myosure Specimens removed/disposition: endometrial curettings to pathology Surgeon: Vannessa Vila Anesthesia: MAC Estimated blood loss (mL): 25 IV fluids (mL): 500 Complications: none Findings: hysteroscopy deficit 1984 Procedure: The patient was taken to the operating room where monitored anesthesia was administered and to be adequate. She was prepped and draped in the normal sterile fashion in the dorsal lithotomy position in [facility]. A weighted speculum was placed into the vagina and the anterior lip of the cervix grasped with a single-tooth tenaculum. The uterus was sounded to 8 cm. The cervix was dilated to 16 Stateless. The hysteroscope was advanced into the endometrial cavity. There was excessive tissue, anterior cystic areas, fibroids visualized. The MyoSure device was activated and the tissue was removed. Pictures were taken pre and post procedure. All instruments were removed. The patient tolerated the procedure well. Sponge lap and needle counts were correct x3. She was taken to the recovery room in stable condition.
--- NOTE | 2022-10-14 14:32 | PM.DCS ---
Discharge Providers Date of Admission: 10/14/22 Date of Discharge: October 14, 2022 Attending Provider at Discharge: Vannessa Vila MD Primary Care Provider: CATRACHITA Torres Diagnoses at Discharge Discharge Diagnosis (1) Transfusion of blood product refused for oriental orthodox reason: Status: Acute (2) Uterine mass: Status: Acute Reason for Visit Reason for Visit: O73.0 Hospital Course Hospital Course The patient was admitted for surgery. She did well postoperatively and was ready for discharge Discharge Data Studies Completed and Pending Pending at discharge Category Date Time Status Pathology: Surgical [PTH] Routine Pth 10/14/22 14:23 Received Laboratory Results Urine HCG, Qual Negative (Negative) 10/14/22 12:27 Vitals Last Vital Signs Temp 98.0 F 10/14/22 14:20 Pulse 105 H 10/14/22 14:30 Resp 18 10/14/22 14:30 BP 115/51 10/14/22 14:30 Pulse Ox 98 10/14/22 14:30 O2 Del Method 10/14/22 14:30 O2 Flow Rate 6 10/14/22 14:20 Discharge Plan Discharge Patient Disposition: Home Condition: Stable Prescriptions: Continued ascorbic acid (vitamin C) 1,000 mg tablet 1 g PO Q6H betaine HCl 300 mg tablet 300 mg PO DAILY Immune Support 250-12.5 mg tablet,chewable 1 tab PO DAILY ashwagandha root extract 300 mg capsule 300 mg PO DAILY cholecalciferol (vitamin D3) [Vitamin D3] 25 mcg (1,000 unit) Tablet 25 mcg PO DAILY Discharge Orders: Discharge Order (Routine); Ordered 10/14/22 Ordered By: Vannessa Vila Discharge Attestations Time Spent in Discharge Care*: less than 30 min Quality Metrics Clinical Quality Measures [ No reported AMI, CVA or VTE this stay] Coding Level of Care Code Acute Chg FW DC note Diagnoses Transfusion of blood product refused for oriental orthodox reason Z53.1 Uterine mass N85.8
--- NOTE | 2022-10-14 14:45 | ANE.PACU2 ---
Inpatient post-anesthesia follow up: Airway intact: Yes Vital signs: Temperature 98.0 F Pulse Rate 103 Respiratory Rate 17 Blood Pressure 112/72 Pulse Oximetry 96 Oxygen Delivery Me thod Room Air Oxygen Flow Rate 6 Fraction of Inspir ed Oxygen Hydration adequate: Yes Nausea and vomiting: No Pain level: 2 Mental status: Baseline
== END 2022-10-14 15:27 | disposition home or self-care (01) ==
PROVIDERS: Anesthesiology; PCP Nurse Practitioner Family; Visit Provider Obstetrics & Gynecology
PROC: 0UDB8ZZ Extraction of Endometrium, Via Natural or Artificial Opening Endoscopic (ICD-10-PCS; CPT 58558; principal; 2022-10-14 13:20)
PROC: (CPT 58120; 2022-10-14 13:20)
DX: N85.8 Other specified noninflammatory disorders of uterus (principal); E66.01 Morbid (severe) obesity due to excess calories; Z68.41 Body mass index [BMI] 40.0-44.9, adult
CPT/HCPCS: 58558; 81025; 84703; 88305; J0690; J3010; J7030

== ENCOUNTER → 2023-01-02 15:00 | Outpatient (BNVA) | payer MEDICAID, SELFPAY | PROVIDERS: PCP Nurse Practitioner Family; Visit Provider Obstetrics & Gynecology | DX: Z01.419 Encounter for gynecological examination (general) (routine) without abnormal findings (principal) | CPT/HCPCS: 88175 ==

== ENCOUNTER 2023-05-28 12:12 | Outpatient (CLI) | payer MEDICAID, SELFPAY ==
--- NOTE | 2023-05-28 12:22 | US_ITS ---
WS: [id number] ULTRASOUND BREAST RIGHT TECHNIQUE: Ultrasound right breast focused area of concern. CLINICAL INFORMATION: RT BR MASS COMPARISON: None. FINDINGS: Ultrasound RIGHT breast area of concern 10:00 o'clock position. Normal underlying parenchymal tissue. No cystic or solid lesions. No suspicious lesions to target for biopsy. US/US breast RT limited* [id number] IMPRESSION: BI-RADS 1 negative Recommend annual screening mammography age 40
== END 2023-05-28 12:13 | disposition home or self-care (01) ==
LOC: RAD 12:13
PROVIDERS: PCP Nurse Practitioner Family; Visit Provider Nurse Practitioner Family
DX: N63.11 Unspecified lump in the right breast, upper outer quadrant (principal)
CPT/HCPCS: 76642

== ENCOUNTER 2023-08-31 07:37 | Outpatient (CLI) | payer MEDICAID, SELFPAY ==
--- NOTE | 2023-08-31 07:45 | US_ITS ---
WS: [id number] ULTRASOUND COMPLETE RIGHT BREAST HISTORY: N64.4 - Mastodynia COMPARISON: 05/28/2023 TECHNIQUE: 2-D and Doppler. Dense fibroglandular densities throughout the breast. There are few small dilated ducts and a small c yst. This cyst is at 2:00 measuring 4 mm. No solid mass. IMPRESSION: US/US breast RT complete [id number] BI-RADS: 2-Benign FOLLOW-UP: See Report No ultrasound abnormality identified. Recommend annual screening mammography be ginning at the age of 39.
== END 2023-08-31 07:38 | disposition home or self-care (01) ==
PROVIDERS: PCP Nurse Practitioner Family; Visit Provider Nurse Practitioner Women's Health
DX: N64.4 Mastodynia (principal)
CPT/HCPCS: 76641

== ENCOUNTER → 2023-10-19 09:56 | Outpatient (BNVA) | payer MEDICAID, SELFPAY | PROVIDERS: PCP Nurse Practitioner Family; Visit Provider Nurse Practitioner Women's Health | DX: R10.2 Pelvic and perineal pain (principal) | CPT/HCPCS: 76830 ==

== ENCOUNTER 2024-06-22 06:52 | Outpatient (CLI) | payer MEDICAID, SELFPAY ==
--- NOTE | 2024-06-22 07:03 | US_ITS ---
WS: [id number] EARLY OBSTETRICAL ULTRASOUND (<14 WEEKS). HISTORY: DATING COMPARISON: None available. Single intrauterine gestational sac is identified. Cardiac activity at 159 BPM. Artesian-rump length shanon sures 4.5 cm which corresponds to a gestation of 11w2d. Normal-appearing yolk sac and amnion demonstr ated. No subchorionic hemorrhage. No free fluid. Normal size ovaries with no mass. Corpus luteal cyst LEFT ovary. US/US OB <=14 wk fetus w transvag IMPRESSION: 1. Single intrauterine gestation of 11w2d with an EDC of 01/09/2025. 2. Normal cardiac activity.
== END 2024-06-22 06:53 | disposition home or self-care (01) ==
LOC: RAD 06:52
PROVIDERS: PCP Nurse Practitioner Family; Visit Provider Nurse Practitioner Family
DX: Z34.91 Encounter for supervision of normal pregnancy, unspecified, first trimester (principal); N83.12 Corpus luteum cyst of left ovary
CPT/HCPCS: 76801; 76817

== ENCOUNTER 2025-01-21 10:06 | Emergency (ER) | payer MEDICAID, SELFPAY ==
[2025-01-21 10:09] VITALS: BP 113/73; PULSE 73; RESP 18; TEMP 36.2; O2SAT 99; BMI 43.7
--- NOTE | 2025-01-21 10:48 | USR_ITS ---
PROCEDURE INFORMATION: Exam: US Pelvis, Transvaginal, Non-Obstetric Exam date and time: 01/21/2025 11:45 AM Age: 24 years old Clinical indication: Pelvic pain; Prior surgery; Surgery date: 6+ months; Surgery type: Unsure of dates but patient has had a d&c; Additional info: Vaginal bleeding/cramping, 1 week post TECHNIQUE: Imaging protocol: Real-time transvaginal pelvic (non-obstetric) ultrasound with image documentation. Transvaginal imaging was used for better evaluation of the endometrium, adnexa, and/or cervix. COMPARISON: US OB <=14 wk fetus w transvag 06/22/2024 7:06 AM FINDINGS: Uterus: Enlarged uterus measuring 7.8 x 10 x 13.7 cm. There is thickening of the endometrium measuring 1.8 cm with heterogeneous echotexture but no flow on color Doppler. Right ovary/adnexa: Not visualized. Left ovary/adnexa: Not visualized. Urinary bladder: Visualized. Intraperitoneal space: No free fluid. US/US transvaginal [id number] IMPRESSION: Thickening of the endometrium with heterogeneous echotexture but no flow on color Doppler, suggestive of retained products of conception.
--- NOTE | 2025-01-21 10:53 | W.ED.ABDPA2 ---
HPI - Abdominal Pain General: Chief Complaint: Abdominal Pain Stated Complaint: 1 wk post lower abd pain Time Seen by Provider: 01/21/25 10:20 History of Present Illness: Patient is a 24-year-old female G2, P2 who is approximately 1 week via spontaneous vaginal delivery with a home via rn cardiovascular and presents to the ER due to reports some abdominal cramping discomfort. She states that 3 days ago she passed somewhat of a large clot per vagina. She has had some occasional shooting pains to her rectum and was recommended by her rn cardiovascular to come get evaluated and potentially an ultrasound. Per the patient, the rn cardiovascular stated they did not have any difficulty delivering the placenta. Patient has not had any fevers. She only had about a 3-hour labor before spontaneously delivering. No complications with delivery. Associated Symptoms: Denies chills, fever(s), nausea and vomiting Related Data Date of Last Menstrual Period: 03/05/24 Home Medications ?Medication ?Instructions ?Recorded ?Confirmed No Known Home Medications 01/21/25 01/21/25 Allergies Allergy/AdvReac Type Severity Reaction Status Date / Time No Known Allergies Allergy Verified 01/21/25 10:19 Review of Systems Const: Denies: fever(s) or chills Card: Denies: chest pain, palpitations or swelling of feet/ankles GI: Denies: abdominal pain, nausea or vomiting : Denies: flank pain Musc: Denies: back pain Skin/Breast: Denies: rash PFSH ED PFSH: Medical History Uterine mass Cat-scratch disease Anxiety Surgical History No history of previous surgery Family History Grandfather Congestive heart failure maternal Heart disease maternal Grandmother Diabetes maternal Family/Other Hypertension maternal side Denies family history of Colon cancer Ovarian cancer Breast cancer Uterine cancer Thyroid disease Stroke Social History Substance/Drug Use: never Female Reproductive History: Date of last menstrual period: 03/05/24 Para: 0 Spontaneous abortions: No Physical Exam Narrative: EXAM NARRATIVE: Well-appearing 24-year-old female in no acute distress Const: COMMON NORMALS: no acute distress, average body habitus, alert and well nourished GENERAL APPEARANCE: cooperative ORIENTATION/CONSCIOUSNESS: Yes awake HENMT: COMMON NORMALS: normocephalic and atraumatic HEAD & SCALP: normocephalic and atraumatic Eye: COMMON NORMALS: conjunctivae normal CONJUNCTIVA: Yes conjunctivae normal Neck/C-Spine: GENERAL: Yes normal visual inspection Resp: COMMON NORMALS: normal respiratory effort, No retractions and No use of accessory muscles Cardio: COMMON NORMALS: regular rhythm and Peripheral pulses 2+ throughout RHYTHM: regular rhythm PERIPHERAL PULSES: Peripheral pulses 2+ throughout GI: COMMON NORMALS: Soft to palpation and non-tender PALPATION: Yes Soft to palpation OTHER: Abdomen soft, nondistended, no appreciable tenderness with palpation. No guarding or rebound. No tenderness to McBurney's point. Negative D[place] sign. Extremity: COMMON NORMALS: normal to inspection, full ROM and no pedal edema Neuro: COMMON NORMALS: no focal motor deficits SENSORIUM/ORIENTATION: Yes alert Skin: COMMON NORMALS: no rashes or lesions noted GENERAL SKIN EXAM: no rashes or lesions noted Course Reevaluation(s): Reevaluation #1: Patient's ultrasound does show some evidence of trace products of conception within endometrium per operating room technician. I consulted Dr. Ervin with gynecology and have requested consultation. He states he would typically treat this conservatively and continue to monitor based on the lack of patient's fever or significant abdominal pain or heavy bleeding. He will consult. I have updated the patient on her ultrasound findings and plan for consultation for gynecology. Time: 12:15 Vital Signs: Vital signs: Vital Signs Temperature 97.2 F L 01/21/25 10:09 Pulse Rate 73 01/21/25 10:09 Respiratory Rate 18 01/21/25 10:09 Blood Pressure 113/73 01/21/25 10:09 Pulse Oximetry 99 01/21/25 10:09 Oxygen Delivery Me thod Room Air 01/21/25 10:09 MDM - Abdominal Pain Medical Decision Making Patient is a well-appearing 24-year-old female who is approximately 1 week postop from a spontaneous vaginal delivery at home. She denies any complications with that however did have a passage of large clots per vagina few days ago. She has had some mild lower abdominal discomfort since then and was referred to the ER by her rn cardiovascular. Patient has well-appearing benign exam here. No significant abdominal tenderness. She reports scant vaginal bleeding today. No fevers or chills. Urinalysis appears contaminated and she denies any dysuria or frequency. Pelvic ultrasound does have findings concerning for some retained products of conception. I spoke with Dr. Ervin with gynecology who will consult and evaluate the patient in the ER. He felt that given her well appearance, lack of fever and lack of continual heavy bleeding that they would likely continue to monitor as an outpatient. Dr. Geronimo evaluated patient and recommends d/c and f./u in clinic. Patient comforable with this as well. Lab Data Labs/Radiology: Radiology Impressions Transvaginal US 01/21/25 10:48 IMPRESSION: Thickening of the endometrium with heterogeneous echotexture but no flow on color Doppler, suggestive of retained products of conception. Laboratory Results Urine Color Yellow (Yellow) 01/21/25 11:07 Urine Appearance Clear (CLEAR) 01/21/25 11:07 Urine pH 6.0 (5-7) 01/21/25 11:07 Ur Specific [place] 1.029 (1.005-1.030) 01/21/25 11:07 Urine Protein Trace (Negative) A 01/21/25 11:07 Urine Glucose (UA) Negative (Normal) 01/21/25 11:07 Urine Ketones Negative (Negative) 01/21/25 11:07 Urine Blood 3+ (Negative) A 01/21/25 11:07 Urine Nitrate Negative (Negative) 01/21/25 11:07 Urine Bilirubin Negative (Negative) 01/21/25 11:07 Urine Urobilinogen 1.0 mg/dL (Negative) 01/21/25 11:07 Ur Leukocyte Esterase Trace (Negative) A 01/21/25 11:07 Urine RBC 5-10 /hpf (0-2) H 01/21/25 11:07 Urine WBC 5-10 /hpf (0-5) H 01/21/25 11:07 Ur Squamous Epith Cells 15-25 /hpf (0-5) H 01/21/25 11:07 Amorphous Sediment Not Reportable 01/21/25 11:07 Urine Bacteria 1+ /hpf (NONE) H 01/21/25 11:07 Hyaline Casts 5-10 /lpf H 01/21/25 11:07 Urine Mucus Trace /hpf 01/21/25 11:07 All radiology interpretation(s) finalized by discharge Discharge Plan Discharge Patient Disposition: Home Clinical Impression: Abdominal pain, Vaginal bleeding Condition: Stable Prescriptions: No Action No Known Home Medications Discharge Orders: Discharge ED (Routine); Ordered 01/21/25 Ordered By: Stephen Verma Referrals: Lukas Cat FNP [Primary Care Provider] - Discharge Activity: Increase activity as tolerated Patient Instructions: Abdominal Pain (ED), Hemorrhage (DC), Opioid Safety, Pain Management Activity Restrictions/Additional Instructions: Follow-up with Dr. Ervin with gynecology as discussed. Return to the ER for any other concerns. Print Language: Samoan Coding Level of Care Code ED Reinforcing Metal Worker for Alfonzo Reed
[2025-01-21 11:10] LABS: Bilirubin Urine Negative (Negative); Blood Urine 3+ (Negative); Glucose Urine UA Negative (Normal); Ketones Urine Negative (Negative); Leukocyte Esterase Urine Trace (Negative); Nitrate Urine Negative (Negative); Protein Urine Trace (Negative); Specific Gravity, Urine 1.029 (1.005-1.030); Urine Appearance Clear (CLEAR); Urine Color Yellow (Yellow)
[2025-01-21 11:21] LABS: Add Urine Microscopic? YES; Bacteria Urine 1+ /hpf; Mucus Urine TRACE /hpf; Squamous Epithelial Cell Urine 15-25 /hpf (0-5)
[2025-01-21 13:34] VITALS: BP 115/71; PULSE 78; O2SAT 99
--- NOTE | 2025-01-21 14:10 | P.CONIM_ITS ---
Providers/Reason for Consult Consulting Physican/Specialty*: Rio Ervin MD, OB-SILVICULTURE TEACHER Reason for Consult*: pelvic pain Requesting Physcian: ER Primary Care Provider: CATRACIHTA Torres PILL COATER Consult HPI History of Present Illness Jennifer Bolden is a 24 year old female s/p at home with a data processing auditor six days ago passed moderate-sized blood clot two days after delivery but no bleeding since then presents to ER c/o intermittent pelvic pain no fever, chills no abdominal pain, no back pain no burning on urination or urinary frequency eating well normal BMs Present Details Date of Last Menstrual Period: 03/05/24 Medications/Allergies Home Medications ?Medication ?Instructions ?Recorded ?Confirmed ?Last Taken ?Type No Known Home Medications 01/21/2512/17 Unknown History Allergies Allergy/AdvReac Type Severity Reaction Status Date / Time No Known Allergies Allergy Verified 01/21/25 10:19 PFSH PILL COATER PFSH: Medical History Uterine mass Cat-scratch disease Anxiety Surgical History No history of previous surgery Family History Grandfather Congestive heart failure maternal Heart disease maternal Grandmother Diabetes maternal Family/Other Hypertension maternal side Denies family history of Colon cancer Ovarian cancer Breast cancer Uterine cancer Thyroid disease Stroke Social History Substance/Drug Use: never Vitals/I&O/Wt Last Vital Signs Temp 97.2 F L 01/21/25 10:09 Pulse 78 01/21/25 13:34 Resp 18 01/21/25 10:09 BP 115/71 01/21/25 13:34 Pulse Ox 99 01/21/25 13:34 O2 Del Method Room Air 01/21/25 10:09 Weight last 48 hrs Weight 262 lb 12.8 oz Physical Exam Narrative: VS: afebrile, normal General: comfortable, awake, alert Abd: soft, nontender Pelvic sono today possible retained POC A&P Assessment and plan (1) Vaginal delivery: h/o six days ago no bleeding patient afebrile normal abdominal exam doubt retained POC will follow clinically patient can be discharged to home Instructions give to return to ER if fever, chills, abdominal pain, bleeding, passage of large clots f/u in 2 with data processing auditor or OB clinic PDMP PDMP Reviewed: Not Reviewed Consult Attestations Medical Necessity Statement: patient s/p vaginal delivery 6 days ago, presented with c/o intermittent pelvic pain Coding Level of Care Code Acute Code for Chg Fwd Diagnoses Vaginal delivery O80 Time Spent (min) 60
== END 2025-01-21 13:35 | disposition home or self-care (01) ==
PROVIDERS: Emergency Provider Student in an Organized Health Care Education/Training Program; PCP Nurse Practitioner Family
DX: O72.1 Other immediate postpartum hemorrhage (principal); R10.9 Unspecified abdominal pain
CPT/HCPCS: 76830; 81001; 99284

== ENCOUNTER 2025-04-06 08:07 | Outpatient (CLI) | payer MEDICAID, SELFPAY ==
--- NOTE | 2025-04-06 08:13 | NM_ITS ---
WS: [id number] NUCLEAR MEDICINE HIDA SCAN CLINICAL INFORMATION: RUQ PAIN TECHNIQUE: Following intravenous administration of 7.8 mCi of technetium 99m mebrofenin, images of the abdomen were obtained over the course of 60 minutes. Next, gallbladder ejection fraction was determined by obtaining preprandial and one-hour postprandial images of the gallbladder following oral ingestion of Ensure. FINDINGS: Hepatomegaly. Normal hepatic uptake at 5 minutes. Normal hepatic excretion. Gallbladder is visualized by 15 minutes. No evidence of acute cholecystitis. Normal common bile duct and small bowel activity. Gallbladder ejection fraction 72% within normal limits. No evidence of chronic cholecystitis. NM/NM hepatobiliary w phar* [id number] IMPRESSION: 1. No evidence of acute or chronic cholecystitis. 2. Gallbladder ejection fraction 72% within normal limits.
[2025-04-06 08:34] LABS: HCG Qualitative Urine. Negative (Negative)
== END 2025-04-06 08:08 | disposition home or self-care (01) ==
PROVIDERS: PCP Nurse Practitioner Family; Visit Provider Nurse Practitioner Family
DX: R10.11 Right upper quadrant pain (principal); R10.12 Left upper quadrant pain; R16.0 Hepatomegaly, not elsewhere classified
CPT/HCPCS: 78227; 81025; A9537

== ENCOUNTER 2025-05-16 11:56 | Day surgery (SDC) | payer MEDICAID, SELFPAY ==
[2025-05-16 12:13] VITALS: BP 131/79; PULSE 73; RESP 18; TEMP 36.1; O2SAT 99; BMI 43.2
[2025-05-16] MEDS: sodium chloride 0.9% 1,000 ML 15 ML IV (12:22)
[2025-05-16 12:27] LABS: OR HCG Qualitative Urine Negative (Negative)
--- NOTE | 2025-05-16 13:08 | W.PM.OPSFHP ---
Same Day Surgery H&P Indication for Procedure/HPI DATE OF PROCEDURE: May 16, 2025 CHIEF COMPLAINT/INDICATIONFOR SURGICAL PROCEDURE: heartburn PREOP DIAGNOSIS: heartburn PLANNED PROCEDURE: Operation Date: 05/16/25 13:15 Proposed Procedures p EGD [id number] R12(Not Applicable) - Gal Bermudez MD Medications/Allergies* Allergies/Adverse Reactions Allergy/AdvReac Type Severity Reaction Status Date / Time No Known Allergies Allergy Verified 05/12/25 11:36 Current Medications: Generic Name Dose Route Start Last Admin Trade Name Freq PRN Reason Stop Dose Admin Sodium Chloride 1,000 mls @ 15 mls/hr 05/16/25 12:00 05/16/25 12:22 Sodium Chloride 0.9% IV 05/17/25 11:59 15 mls/hr .Q24H PRN Administration COLONOSCOPY FLUIDS Pertinent History/Comorbid Conditions* Medical History (Updated 04/13/25 @ 09:50 by Gal Bermudez MD) Psychiatric care Uterine mass Cat-scratch disease Anxiety Surgical History (Updated 07/09/22 @ 07:59 by Luis Adams MD) No history of previous surgery Family History (Updated 01/02/23 @ 08:33 by Dali Chisholm LPN) Diabetes Grandmother maternal Congestive heart failure (CHF) Grandfather maternal Heart disease Grandfather maternal Hypertension Family/Other maternal side Denies family history of Colon cancer Ovarian cancer Breast cancer Uterine cancer Thyroid disease Stroke Social History Smoking and tobacco/nicotine status: never used tobacco/nicotine Substance/Drug Use: never Pertinent Exam Findings alert, oriented x 3, clear to auscultation bilaterally, regular rate & rhythm and procedure specific exam findings abdomen soft, nt, nhd Recommendations Risks and benefits of procedure reviewed and Patient/family agree to proceed Surgery/Procedure today Coding Level of Care Code Acute Code for Chg Fwd
--- NOTE | 2025-05-16 13:12 | P.ANESASSM_ITS ---
Pre-Anesthetic Assessment Height/Weight: Height 1.65 m Weight 117.934 kg Temp Pulse Resp BP Pulse Ox O2 Del Method 97 F L 73 18 131/79 99 Room Air 05/16/25 12:13 05/16/25 12:13 05/16/25 12:13 05/16/25 12:13 05/16/25 12:13 05/16/25 12:13 Preop Diagnosis: heartburn Operation Date: 05/16/25 13:15 Proposed Procedures p EGD [id number] R12(Not Applicable) - Gal Bermudez MD Familial anesthetic complications: none Was Beta Selene taken within 24 hours: N/A Was Clonidine taken within 24 hours: N/A Last intake: Intake Last Liquid Date 05/16/25 Last Liquid Time 08:30 Last Solid Date 05/15/25 Last Solid Time 22:00 Social No alcohol and No tobacco Exam alert and oriented x 3 currently Airway Submandibular: within normal limits Cervical ROM: within normal limits Mallampati: Class III Dentition: full History/ROS No significant history except as noted Neuropsych Anxiety Anesthetic Plan ASA status: 2 Anesthesia: Anesthesia Evaluation and MAC Risk of > 500 ml blood loss (7ml/kg in children): No Medications/Allergies Home Medications ?Medication ?Instructions ?Recorded ?Confirmed ?Last Taken ?Type sertraline 50 mg tablet (Zoloft) 50 mg PO DAILY #30 ta bs 03/28/25 05/12/25 05/11/25 Rx pantoprazole 40 mg tablet,delayed 40 mg PO DAILY 6 wee ks #42 tabs 05/16/25 Unknown Rx release (Protonix) Allergies Allergy/AdvReac Type Severity Reaction Status Date / Time No Known Allergies Allergy Verified 05/12/25 11:36 Current Medications Generic Name Dose Route Start Last Admin Trade Name Freq PRN Reason Stop Dose Admin Sodium Chloride 1,000 mls @ 15 mls/hr 05/16/25 12:00 05/16/25 12:22 Sodium Chloride 0.9% IV 05/17/25 11:59 15 mls/hr .Q24H PRN Administration COLONOSCOPY FLUIDS PFSH Anesthesia Medical History Psychiatric care Uterine mass Cat-scratch disease Anxiety Surgical History No history of previous surgery Family History Grandfather Congestive heart failure (CHF) maternal Heart disease maternal Grandmother Diabetes maternal Family/Other Hypertension maternal side Denies family history of Colon cancer Ovarian cancer Breast cancer Uterine cancer Thyroid disease Stroke Social History Smoking and tobacco/nicotine status: never used tobacco/nicotine Substance/Drug Use: never Female Reproductive History Date of last menstrual period: 04/06/25 Para: 0 Spontaneous abortions: No
[2025-05-16 13:30] VITALS: BP 115/60; PULSE 83; RESP 18; TEMP 36.2; O2SAT 93
[2025-05-16 13:51] VITALS: BP 130/79; PULSE 62; RESP 18; O2SAT 98
--- NOTE | 2025-05-16 14:05 | ANE.PACU2 ---
Inpatient post-anesthesia follow up: Airway intact: Yes Vital signs: Temperature 97.2 F Pulse Rate 62 Respiratory Rate 18 Blood Pressure 130/79 Pulse Oximetry 98 Oxygen Delivery Me thod Room Air Oxygen Flow Rate Fraction of Inspir ed Oxygen Hydration adequate: Yes Pain level: 1 Mental status: Baseline
== END 2025-05-16 13:59 | disposition home or self-care (01) ==
PROVIDERS: PCP Nurse Practitioner Family; Visit Provider Student in an Organized Health Care Education/Training Program
PROC: 0DJ08ZZ Inspection of Upper Intestinal Tract, Via Natural or Artificial Opening Endoscopic (ICD-10-PCS; principal; 2025-05-16 13:15)
DX: K29.50 Unspecified chronic gastritis without bleeding (principal); K29.80 Duodenitis without bleeding; Z79.899 Other long term (current) drug therapy
CPT/HCPCS: 43239; 81025; 88305; J2704; J7030

== ENCOUNTER 2025-10-28 09:23 | Emergency (ER) | payer SELFPAY ==
[2025-10-28 09:26] VITALS: BP 136/81; PULSE 92; RESP 17; TEMP 35.9; O2SAT 99; BMI 41.5
--- NOTE | 2025-10-28 09:30 | USR_ITS ---
PROCEDURE INFORMATION: Exam: US Abdomen, Limited; Right Upper Quadrant Exam date and time: 10/28/2025 10:05 AM Age: 25 years old Clinical indication: Right upper quadrant abdominal pain. TECHNIQUE: Imaging protocol: Real time ultrasound of the abdomen with image documentation. Limited exam focused on the right upper quadrant. COMPARISON: US pelv w/transvag [id number] 09/19/2022 5:53 PM FINDINGS: The visualized IVC and aorta are grossly normal in caliber. No focal hepatic lesion is seen. No biliary ductal dilatation. The common bile duct measures 0.4 cm. No cholelithiasis. No gallbladder wall thickening or pericholecystic fluid. The right kidney measures 9.7 cm. No suspicious mass or hydronephrosis. The pancreas is partially obscurred by overlying bowel gas. The visualized pancreas is unremarkable. US/US gall bladder [id number] IMPRESSION: No acute abnormality identified.
--- OUTSIDE RECORDS SUMMARY | 2025-10-28 09:30 | XMS_ITS | Clinical Summary ---
Author Organization [facility] Address [address] [place] [address] Attn: [place] [address] Care Team Providers Care Assistant Director Of Residence Life Name Role Phone Haley Rosas Primary Care Provider Allergies No known active allergies Medications VIT-IRON FUM-FOLIC AC ORAL Take by mouth. Active sertraline (ZOLOFT) 50 mg tablet Take 50 mg by mouth daily. Hasn't started it yet Active Active Problems Problem Noted Date Diagnosed Date Hepatomegaly 04/12/2025 Bilateral upper abdominal pain 04/12/2025 Family history of diabetes mellitus in [facility] er 04/12/2025 Fatty liver 04/12/2025 Morbid obesity with body mass index of 40.0-49.9 04/12/2025 Anxiety and depression 10/07/2024 Intermittent generalized abdominal pain 05/17/20 24 PMDD (premenstrual dysphoric disorder) 6 Generalized anxiety disorder 07/23/2016 Resolved Problems Problem Noted Date Diagnosed Date Resolved Date Major depressive disorder wi th single episode, in partial remission 07/23/2016 03/13/2023 Encounters Date Type Department Care Team Description 10/24/2025 External Device Data [facility] ABSTRACTION Provider, Abstract 08/08/2025 External Device Data [facility] ABSTRACTION Provider, Abstract from Last 3 Months Family History Medical History Relation Name Comments Heart Disease Maternal Grandfather High Cholesterol Maternal Grandfather Diabetes Maternal Grandmother Hypertension Mother Hypertension Sister Relation Name Status Comments Maternal Grandfather Maternal Grandmother Mother Sister Social History Tobacco Use Types Packs/Day Years Used Date Smoking Tobacco: Never Smokeless Tobacco: Never Alcohol Use Standard Drinks/Week Comments No 0 (1 standard drink = 0.6 oz pur e alcohol) Comments No Sex and Gender Information Value Date Recorded Sex Assigned at Not on file Legal Sex Female 12:28 AM LPN CARE MANAGER Gender Identity Not on file Sexual Orientation Not on file Last Filed Vital Signs Vital Sign Reading Time Taken Comments Blood Pressure 132/66 04/12/2025 10:17 AM CDT Pulse 75 04/12/2025 10:17 AM CDT Temperature 36.2 C (97.1 F) 04/12/2025 10:17 AM CDT Respiratory Rate 17 04/12/2025 10:17 AM CDT Oxygen Saturation 92% 04/12/2025 10:17 AM CDT Inhaled Oxygen Concentration - - Weight 118.4 kg (261 lb) 04/12/2025 10:17 AM CDT Height 165.1 cm (5' 5 ) 04/12/2025 10:17 AM CDT Body Mass Index 43.43 04/12/2025 10:17 AM CDT Plan of Treatment Health Maintenance Due Date Last Done Comments HPV VACCINES (1 - 3-dose series) 2014 DTAP/TDAP/TD VACCINES (1 - Tdap) 2018 HEPATITIS B VACCINES (1 of 3 - 19+ 3-dose series) 05/24 Preventative Visit-Managed Medicaid 2018 CERVICAL CANCER SCREENING 2020 HPV/Cotest (21-29) 2020 PAP SMEAR 2020 INFLUENZA VACCINE (#1) 2025 Goals Goal Patient Goal Type Associated Problems Recent Progress Patient-Stated? Author Patient would like to decrease health related anxiety General No change(2022 3:33 PM LPN CARE MANAGER) Yes Evelin Hudson, SOIL SCIENCE TECHNICAL OFFICER Note: 12/23/2022 Today's SMART Goal: Patient will journal once this week for 10 Minutes. Insurance [facility] [employer] PLAN MEDICAID Care Teams Assistant Director Of Residence Life Relationship Specialty Start Date End Date Haley Rosas DO [address] [place] [id number] PCP - General Family Practice 07/21/16
--- OUTSIDE RECORDS SUMMARY | 2025-10-28 09:30 | XMS_ITS | Encounter Summary ---
Author Organization [facility] Address [address] [place] [address] Care Team Providers Care Fork Repairer Name Role Phone Haley Rosas DO Primary Care Provider [phone] Encounter Details Date Type Department Care Team (Late st Contact Info) Description 10/24/2025 External Device Data [facility] ABSTRACTION Provider, Abstract NO ADDRESS ON FILE Social History Tobacco Use Types Packs/Day Years Used Date Smoking Tobacco: Never Smokeless Tobacco: Never Alcohol Use Standard Drinks/Week Comments No 0 (1 standard drink = 0.6 oz pur e alcohol) Comments No Sex and Gender Information Value Date Recorded Sex Assigned at Not on file Legal Sex Female 12:28 AM REPAIRER FINISHED METAL Gender Identity Not on file Sexual Orientation Not on file documented as of this encounter Plan of Treatment Not on file documented as of this encounter Goals Goal Patient Goal Type Associated Problems Recent Progress Patient-Stated? Author Patient would like to decrease health related anxiety General No change(2022 3:33 PM REPAIRER FINISHED METAL) Yes Evelin Hudson GAS SUBSTATION OPERATOR Note: 12/23/2022 Today's SMART Goal: Patient will journal once this week for 10 Minutes. documented as of this encounter Visit Diagnoses Not on filedocumented in this encounter Additional Health Concerns Assessment Noted Time PHQ-9 Depression Total Score: 3 03/08/20 25 11:09 AM CDT documented as of this encounter Care Teams Fork Repairer Relationship Specialty Start Date End Date Haley Rosas DO [address] [place] [phone] PCP - General Family Practice 07/21/16 documented as of this encounter
--- NOTE | 2025-10-28 09:31 | W.ED.ABDPA2 ---
HPI - Abdominal Pain General: Chief Complaint: Abdominal Pain Stated Complaint: Upper ABD lower back pain Diarrhea Time Seen by Provider: 10/28/25 09:25 Source: patient Mode of arrival: ambulatory Limitations: no limitations History of Present Illness: 25-year-old female states she has been having intermittent upper abdominal pains going on for 3 years. She states she has seen GI along with general surgery has had a cholecystectomy offered in the past but she declined she states she has no history of cholecystitis and they did a HIDA scan that was normal as well. She states over the last 3 days she has been having right upper quadrant abdominal pain again with vomiting diarrhea she rates her pain a 2 out of 10 currently denies any worse improved factors Associated Symptoms: Reports vomiting Related Data Previous Rx's ?Medication ?Instructions ?Recorded hydroxyzine HCl 25 mg tablet 25 mg PO QID PRN anxiety #120 tabs 09/18/25 sertraline 100 mg tablet (Zoloft) 150 mg (1.5 x 100 mg) PO DAILY #45 09/20/25 tabs dicyclomine 20 mg tablet 20 mg PO TID PRN abdominal pain 10/28/25 #20 tabs ondansetron 4 mg disintegrating 4 mg PO Q6H PRN nausea and 10/28/25 tablet vomiting #14 tabs Allergies Allergy/AdvReac Type Severity Reaction Status Date / Time No Known Allergies Allergy Verified 09/20/25 10:56 Review of Systems GI: Reports: abdominal pain and vomiting [facility] PFSH: Medical History Psychiatric care Uterine mass Cat-scratch disease Anxiety Surgical History No history of previous surgery Family History Grandfather Congestive heart failure (CHF) maternal Heart disease maternal Grandmother Diabetes maternal Family/Other Hypertension maternal side Denies family history of Colon cancer Ovarian cancer Breast cancer Uterine cancer Thyroid disease Stroke Social History Smoking and tobacco/nicotine status: never used tobacco/nicotine Substance/Drug Use: never Female Reproductive History: Para: 0 Spontaneous abortions: No Physical Exam Const: COMMON NORMALS: no acute distress, patient oriented x3 and healthy appearing HENMT: COMMON NORMALS: normocephalic and atraumatic HEAD & SCALP: normocephalic and atraumatic Neck/C-Spine: COMMON NORMALS: full ROM and supple Chest: COMMONS NORMALS: normal inspection of the chest Resp: COMMON NORMALS: normal respiratory effort, No retractions, No use of accessory muscles and clear to auscultation bilaterally AUSCULTATION: clear to auscultation bilaterally Cardio: COMMON NORMALS: regular rate, regular rhythm and No murmurs present (Cardio) RATE: regular rate RHYTHM: regular rhythm GI: COMMON NORMALS: Normal to inspection, nondistended, normoactive bowel sounds present, Soft to palpation, non-tender and no masses PALPATION: Yes Soft to palpation Extremity: COMMON NORMALS: normal to inspection and full ROM Neuro: COMMON NORMALS: patient oriented x3, moves all extremities and no focal motor deficits Psych: COMMON NORMALS: mental status grossly normal, Normal thought process present and cooperative THOUGHT PROCESS: Normal thought process present Skin: COMMON NORMALS: no rashes or lesions noted and no wounds GENERAL SKIN EXAM: no rashes or lesions noted Course Vital Signs: Vital signs: Vital Signs Temperature 96.7 F L 10/28/25 09:26 Pulse Rate 92 10/28/25 09:26 Respiratory Rate 17 10/28/25 09:26 Blood Pressure 136/81 10/28/25 09:26 Pulse Oximetry 99 10/28/25 09:26 Oxygen Delivery Me thod Room Air 10/28/25 09:26 MDM - Abdominal Pain Medical Decision Making Patient presents here with abdominal pain has been going on for years intermittently. Differential includes cholelithiasis, cholecystitis, pancreatitis. Patient abdominal exam here is benign did get an ultrasound that showed no signs of cholecystitis or gallstones. Patient's blood work showed no significant abnormality white count here is normal no signs of acute surgical abdomen. She is to follow back up with [facility] will prescribe her Bentyl along with Zofran I did go over all these findings with her she is to return if worsening she understands agrees to plan. Medical Records I reviewed the patient's medical records. Lab Data I reviewed the patient's lab results. 10/28/25 09:45 10/28/25 09:45 Labs/Radiology: Radiology Impressions Gallbladder Ultrasound 10/28/25 09:30 IMPRESSION: No acute abnormality identified. Laboratory Results WBC 4.03 10^3/uL (3.29-11.43) 10/28/25 09:45 RBC 5.08 10^6/uL (3.85-5.65) 10/28/25 09:45 Hgb 14.10 g/dL (11.27-16.99) 10/28/25 09:45 Hct 43.1 % (36-47) 10/28/25 09:45 MCV 84.8 fl (85-98) L 10/28/25 09:45 MCH 27.8 pg (27-33) 10/28/25 09:45 MCHC 32.7 g/dL (30-55) 10/28/25 09:45 RDW 12.2 % (12.1-15.1) 10/28/25 09:45 Plt Count 197 10^3/cmm (157-399) 10/28/25 09:45 MPV 10.9 fL (7.4-10.4) H 10/28/25 09:45 Neut % (Auto) 51.9 % 10/28/25 09:45 Lymph % (Auto) 33.3 % 10/28/25 09:45 Hendricks % (Auto) 11.4 % 10/28/25 09:45 Eos % (Auto) 2.7 % 10/28/25 09:45 Baso % (Auto) 0.7 % 10/28/25 09:45 Neut # (Auto) 2.09 10^3/uL (1.8-7.7) 10/28/25 09:45 Lymph # (Auto) 1.3 10^3/uL (0.8-4.8) 10/28/25 09:45 Hendricks # (Auto) 0.5 10^3/uL (0.2-0.9) 10/28/25 09:45 Eos # (Auto) 0.1 10^3/uL (0.0-0.8) 10/28/25 09:45 Baso # (Auto) 0.0 10^3/uL (0.0-0.1) 10/28/25 09:45 Nucleated RBC % (auto) 0 % 10/28/25 09:45 Nucleated RBCs # 0.0 /100WBC 10/28/25 09:45 Sodium 138 mmol/L (136-145) 10/28/25 09:45 Potassium 3.7 mmol/L (3.5-5.1) 10/28/25 09:45 Chloride 104 mmol/L (98-107) 10/28/25 09:45 Carbon Dioxide 21 mmol/L (22-29) L 10/28/25 09:45 Anion Gap 16.7 (5-19) 10/28/25 09:45 BUN 10 mg/dL (6-20) 10/28/25 09:45 Creatinine 0.6 mg/dL (0.5-0.9) 12 09:45 GFR Calculation 120.8 mL/min (90-130) 10/28/25 09:45 Glucose 88 mg/dL (65-115) 10/28/25 09:45 Calculated Osmolality 284 mOsm/kg (285-295) L 10/28/25 09:45 Calcium 8.9 mg/dL (8.5-10.5) 10/28/25 09:45 Total Bilirubin 0.4 mg/dL (0.15-1.2) 10/28/25 09:45 AST 13 U/L (0-32) 10/28/25 09:45 ALT 9 U/L (0-33) 10/28/25 09:45 Alkaline Phosphatase 63 U/L (35-105) 10/28/25 09:45 Total Protein 7.7 g/dL (6.6-8.7) 10/28/25 09:45 Albumin 4.6 g/dL (3.5-5.2) 10/28/25 09:45 Globulin 3.1 g/dL (1.3-4.6) 10/28/25 09:45 Lipase 15 U/L (13-60) 10/28/25 09:45 HCG, Qual Negative (Negative) 10/28/25 09:45 Urine Color Yellow (Yellow) 10/28/25 10:00 Urine Appearance Cloudy (CLEAR) A 10/28/25 10:00 Urine pH 5.5 (5-7) 10/28/25 10:00 Ur Specific [place] 1.030 (1.005-1.030) 10/28/25 10:00 Urine Protein 1+ (Negative) A 10/28/25 10:00 Urine Glucose (UA) Negative (Normal) 10/28/25 10:00 Urine Ketones Negative (Negative) 10/28/25 10:00 Urine Blood 2+ (Negative) A 10/28/25 10:00 Urine Nitrate Negative (Negative) 10/28/25 10:00 Urine Bilirubin Negative (Negative) 10/28/25 10:00 Urine Urobilinogen 1.0 mg/dL (Negative) 10/28/25 10:00 Ur Leukocyte Esterase Negative (Negative) 10/28/25 10:00 Urine RBC 6-10 /hpf (0-2) 10/28/25 10:00 Urine WBC 11-20 /hpf (0-5) H 10/28/25 10:00 Ur Squamous Epith Cells 21-50 /hpf (0-5) H 10/28/25 10:00 Amorphous Sediment Not Reportable 10/28/25 10:00 Urine Bacteria 1+ /hpf (NONE) H 10/28/25 10:00 Hyaline Casts 0.40 /lpf 10/28/25 10:00 All radiology interpretation(s) finalized by discharge Discharge Plan Discharge Patient Disposition: Home Clinical Impression: Abdominal pain Condition: Stable Prescriptions: New ondansetron 4 mg tablet,disintegrating 4 mg PO Q6H PRN (Reason: nausea and vomiting) Qty: 14 0RF dicyclomine 20 mg tablet 20 mg PO TID PRN (Reason: abdominal pain) Qty: 20 0RF No Action sertraline [Zoloft] 100 mg tablet 150 mg PO DAILY Qty: 45 2RF hydroxyzine HCl 25 mg tablet 25 mg PO QID PRN (Reason: anxiety) Qty: 120 2RF Discharge Orders: Discharge ED (Routine); Ordered 10/28/25 Ordered By: Talon Enrique Referrals: Gal Bermudez MD [Physician, General Surgery] - 4-7 days Lukas Cat FNP [Primary Care Provider] Discharge Diet: Advance as tolerated Discharge Activity: Resume usual activity Patient Instructions: Abdominal Pain (ED) Print Language: Filipino Coding Level of Care Code ED Assistant District Attorney for [place]
[2025-10-28] MEDS: morphine 4 mg/mL SDV 1 mL IVP (09:47)
[2025-10-28] MEDS: ondansetron 2 mg/ML SDV 2 mL 4 MG IVP (09:47)
[2025-10-28 09:58] LABS: Hematocrit 43.1 % (36-47); Hemoglobin 14.10 g/dL (11.27-16.99); Mean Corpuscular HGB Conc 32.7 g/dL (30-55); Mean Corpuscular Hemoglobin 27.8 pg (27-33); Mean Corpuscular Volume 84.8 fl (85-98); Nucleated Red Blood Cells % 0 %; Platelet Count 197 10^3/cmm (157-399); Red Blood Count 5.08 10^6/uL (3.85-5.65); White Blood Count 4.03 10^3/uL (3.29-11.43)
[2025-10-28 10:06] LABS: Glucose Urine UA Negative (Normal); Nitrate Urine Negative (Negative); Specific Gravity, Urine 1.030 (1.005-1.030)
[2025-10-28 10:10] LABS: HCG, Serum Qual Negative (Negative)
[2025-10-28 10:10] LABS: Add Urine Microscopic? YES
[2025-10-28 10:16] LABS: Alanine Aminotransferase 9 U/L (0-33); Albumin Level 4.6 g/dL (3.5-5.2); Alkaline Phosphatase 63 U/L (35-105); Anion Gap 16.7 (5-19); Aspartate Amino Transferase 13 U/L (0-32); Blood Urea Nitrogen 10 mg/dL (6-20); Calcium 8.9 mg/dL (8.5-10.5); Carbon Dioxide 21 mmol/L (22-29); Chloride 104 mmol/L (98-107); Globulin 3.1 g/dL (1.3-4.6); Glucose 88 mg/dL (65-115); Lipase 15 U/L (13-60); Osmolality Calculated 284 mOsm/kg (285-295); Potassium 3.7 mmol/L (3.5-5.1); Sodium 138 mmol/L (136-145); Total Protein 7.7 g/dL (6.6-8.7)
[2025-10-28 10:33] VITALS: BP 131/91; PULSE 88; RESP 15
[2025-10-28 10:58] VITALS: PULSE 81; O2SAT 100
--- NOTE | 2025-10-30 16:22 | DCPLANNER ---
messaged gen surg for er f/u
== END 2025-10-28 11:03 | disposition home or self-care (01) ==
PROVIDERS: Emergency Provider Emergency Medicine; PCP Nurse Practitioner Family
DX: R10.10 Upper abdominal pain, unspecified (principal)
CPT/HCPCS: 76705; 80053; 81001; 83690; 84703; 85025; 96374; 96375; 99284; J2270; J2405; J7030; J9999